=== PATIENT | female | born 1985 | race Caucasian/White ===

== ENCOUNTER 2017-04-17 19:34 | Emergency (ER) | payer BC ==
[~2017-04-17] VITALS: Ht 157.5 cm; Wt 49.9 kg
--- NOTE | 2017-04-17 19:36 | PHYS DOC ---
Adult General Chief Complaint Chief Complaint: fever, flulike symptoms HPI HPI Patient is a 31 year old female who presents with dizziness, nonproductive cough , fever over the last 23 days. She states yesterday she was seen and swab for influenza and was told it was negative. Her was diagnosed influenza about 4 days ago and is on Tamiflu. She denies any nausea vomiting diarrhea, abdominal pain or chest pain. She does have a nonproductive cough and states she feels extremely dizzy. She denies neck stiffness or confusion. She did take Motrin several hours ago. She states her past medical history depression and she is on Zoloft. Review of Systems Review of Systems Constitutional: Positive for fever Eyes: Denies change in visual acuity, redness, or eye pain [] HENT: Denies nasal congestion or sore throat [] Respiratory: Positive for nonproductive cough Cardiovascular: No additional information not addressed in HPI [] GI: Denies abdominal pain, nausea, vomiting, bloody stools or diarrhea [] : Denies dysuria or hematuria [] Musculoskeletal: Denies back pain or joint pain [] Integument: Denies rash or skin lesions [] Neurologic: Denies headache, focal weakness or sensory changes [] Endocrine: Denies polyuria or polydipsia [] All other systems were reviewed and found to be within normal limits, except as documented in this note. Physical Exam Physical Exam Constitutional: Well developed, well nourished, no acute distress, non-toxic appearance. [] HENT: Normocephalic, atraumatic, bilateral external ears normal, oropharynx moist, no oral exudates, nose normal. [] Eyes: PERRLA, EOMI, conjunctiva normal, no discharge. [] Neck: Normal range of motion, no tenderness, supple, no stridor. [] Cardiovascular:Heart rate regular rhythm, tachycardic, no murmur [] Lungs & Thorax: Bilateral breath sounds clear to auscultation [] Abdomen: Bowel sounds normal, soft, no tenderness, no masses, no pulsatile masses. [] Skin: Warm, dry, no erythema, no rash. [] Back: No tenderness, no CVA tenderness. [] Extremities: No tenderness, no cyanosis, no clubbing, ROM intact, no edema. [] Neurologic: Alert and oriented X 3, normal motor function, normal sensory function, no focal deficits noted. [] Psychologic: Affect normal, judgement normal, mood normal. [] EKG EKG [] Radiology/Procedures Radiology/Procedures [] Impressions: Influenza Right Otitis media Course & Med Decision Making Course & Med Decision Making Pertinent Labs and Imaging studies reviewed. (See chart for details) Influenza is positive. She received 2 L of fluid. She also received a gram of Tylenol. She does have some fluid and pain in her right ear we'll discharge with Z-Rupert since she is allergic to penicillin. In addition to 5 days of Tamiflu. Return precautions given. She is agreeable Plan B discharged in stable condition at this time. Dragon Disclaimer Dragon Disclaimer This electronic medical record was generated, in whole or in part, using a voice recognition dictation system. Departure Departure: Impression: Primary Impression: Otitis media Additional Impression: Influenza Disposition: ADMITTED INPATIENT Condition: STABLE Referrals: MELE MENA (PCP) Patient Instructions: Haemophilus influenzae type b Conjugate Vaccine injection Additional Instructions: You have influenza and will need to take Tamiflu for the next 5 days. You can also take Tylenol 650 mg every 4 hours not to exceed 3000 mg in 24 hours for fever and body aches. You can also try Advil 400 mg every 8 hours in addition to Tylenol if your fever is not controlled. You can also start taking a Z-Rupert for your ear discomfort. It is an antibiotic. You will need follow-up to primary care physician within a week. If your symptoms such as lightheadedness, dizziness gets worse or do does not improve and you will need to see your physician within the next few days. If you develop high fevers, shortness of breath, or other concerns return back to the ER. Scripts Azithromycin (AZITHROMYCIN TABLET) 250 Mg Tablet 1 PKG PO UD, #6 TAB Prov: JOE BROWNE MD 04/17/17 Oseltamivir Phosphate (TAMIFLU) 75 Mg Capsule 1 CAP PO BID, #10 CAP Prov: JOE BROWNE MD 04/17/17 Problem Qualifiers Primary Impression: Otitis media Otitis media type: unspecified Laterality: right Qualified Codes: H66.91 - Otitis media, unspecified, right ear JOE BROWNE MD Apr 17, 2017 19:36
[2017-04-17] MEDS ORDERED: ACETAMINOPHEN 500 MG TABLET PO ONE (20:15)
[2017-04-17] MEDS ORDERED: ACETAMINOPHEN 325 MG TABLET PO ONE (20:15)
[2017-04-17] MEDS ORDERED: IV NORMAL SALINE 1,000ML 1,000 ML IV SCH (20:15)
[2017-04-17 20:32] LABS: BASO % 0 % (0-3); EOS % 0 % (0-3); HEMATOCRIT 40.3 % (36.0-47.0); HEMOGLOBIN 13.9 g/dL (12.0-15.5); LYMPH # 0.5 x10^3/uL (1.0-4.8); LYMPH % 8 % (24-48); MEAN CORPUSCULAR HEMOGLOBIN 32 pg (25-35); MEAN CORPUSCULAR HGB CONC 34 g/dL (31-37); MEAN CORPUSCULAR VOLUME 92 fL (79-100); MONO # 0.5 x10^3/uL (0.0-1.1); MONO % 8 % (0-9); NEUT % 84 % (31-73); PLATELET COUNT 176 x10^3/uL (140-400); RED BLOOD COUNT 4.37 x10^6/uL (3.50-5.40); RED CELL DISTRIBUTION WIDTH 13.1 % (11.5-14.5)
[2017-04-17 20:37] LABS: INFLUENZA A PATIENT POSITIVE (NEGATIVE); INFLUENZA B PATIENT NEGATIVE (NEGATIVE)
[2017-04-17 20:40] LABS: BACTERIA,URINE 0 /HPF (0-FEW); BILIRUBIN,URINE NEG (NEG); CLARITY,URINE CLEAR; COLOR,URINE STRAW; GLUCOSE,URINE NEG (NEG); NITRITE,URINE NEG (NEG); SQUAMOUS EPITHELIAL CELL,UR OCC /LPF; UROBILINOGEN,URINE 0.2 mg/dL (0.2 mg/dL)
[2017-04-17 20:44] LABS: ALBUMIN 4.1 g/dL (3.4-5.0); CALCIUM 8.9 mg/dL (8.5-10.1); CREATININE 0.7 mg/dL (0.6-1.0); DIRECT BILIRUBIN 0.1 mg/dL (0.0-0.2); GFR 96.4; POTASSIUM 3.5 mmol/L (3.5-5.1); TOTAL BILIRUBIN 0.2 mg/dL (0.2-1.0)
[2017-04-17] MEDS ORDERED: OSELTAMIVIR 75 MG CAPSULE PO ONE (20:45)
[2017-04-17] MEDS ORDERED: OSEL75CA PO (21:06)
[2017-04-17] MEDS ORDERED: AZIT250T6 PO (21:06)
[2017-04-17] MEDS ORDERED: IV NORMAL SALINE 1,000ML 1,000 ML IV ONE (21:15)
[2017-04-17 21:45] VITALS: BP 101/68
== END 2017-04-17 21:51 | disposition other institution (70) ==
LOC: ER 19:34
DX: J09.X2 Influenza due to identified novel influenza A virus with other respiratory manifestations (principal); H66.91 Otitis media, unspecified, right ear; Z88.0 Allergy status to penicillin
CPT/HCPCS: 36415; 80048; 80076; 81001; 81025; 85025; 87804; 96360; 96361; 99285-25; J7030

== ENCOUNTER → 2020-02-29 | Outpatient (CLI) | payer BC ==
[~2020-02-29] MED LIST: AZIT250T6 PO; IOHEXOL 300 MG/ML 75 ML VIAL. IV ONE; OSEL75CA PO
--- NOTE | 2020-02-29 16:30 | RAD ---
Exam: CT abdomen/pelvis with intravenous contrast Indication: Unicornuate uterus, presurgery Comparison: CT abdomen and pelvis 03/08/2012 Technique: Helical CT imaging performed of the abdomen and pelvis after the intravenous administratio n of 75 mL intravenous contrast. Sagittal and coronal reformats were obtained. One or more of the following individualized dose reduction techniques were utilized for this examinat ion: 1. Automated exposure control 2. Adjustment of the mA and/or kV according to patient size 3. Use of iterative reconstruction technique. Findings: Lower chest: Lung bases are clear. The heart is normal in size. Liver: Normal. Gallbladder/Biliary Tree: Normal. Pancreas: Normal. Spleen: Normal. Adrenal Glands: Normal. Kidneys/Ureters/Bladder: Both kidneys are normal in size and morphology, and enhance symmetrically. N o hydronephrosis. Ureters are not well visualized. Bladder is normal. Reproductive Organs: Uterus is anteverted and deviated to the right. Uterine morphology would be bett er characterized by MRI. There are prominent parametrial vessels, greater on the left. The left ovary is high in position in the left lower quadrant, anterior to the iliacus muscle and lateral to the ps oas muscle, at the level of the sacral promontory. There are prominent left ovarian vessels. The righ t ovary is in the adnexa, abutting the uterine fundus. Stomach, small bowel, and colon: The stomach, small bowel, and colon are normal. The appendix is not well visualized. Vasculature: Abdominal aorta and inferior vena cava are normal. Lymph Nodes: No lymphadenopathy Peritoneum and retroperitoneum: Trace free fluid in the pelvis on the right. Bones: No acute osseous abnormality. IMPRESSION: 1. The uterus is anteverted and tilted to the right. Uterine morphology would be better characterize d by MRI. There are prominent parametrial vessels. 2. The left ovary is high in position in the left lower quadrant, anterior to the iliacus muscle and lateral to the psoas muscle, at the level of the sacral promontory. There are prominent left ovarian vessels. 3. The right ovary is in the right adnexa abutting the uterine fundus. 4. Normal appearance and position of both kidneys. Ureters are not well visualized. Electronically signed by: Rhianna Velasquez MD (02/29/2020 4:27 PM) [id number]
== END ==
LOC: CT 07:43
PROVIDERS: ATTEND Obstetrics & Gynecology
DX: Z01.818 Encounter for other preprocedural examination (principal); Q51.4 Unicornate uterus
CPT/HCPCS: 74177; Q9967

== ENCOUNTER 2020-03-10 17:49 | Emergency (ER) | payer BC ==
[~2020-03-10] VITALS: Ht 157.5 cm; Wt 55.0 kg
[~2020-03-10 17:49] MED LIST changes: -IOHEXOL 300 MG/ML 75 ML VIAL. IV ONE
--- NOTE | 2020-03-10 18:03 | PHYS DOC ---
Past History Past Medical History: Anemia, Anxiety Past Surgical History: Hysterectomy, Tubal ligation, Other Past Surgical History Cardiac ablation for proximal supraventricular tachycardia 2011 Alcohol Use: None Drug Use: None General Adult EDM: Chief Complaint: POST-OP PROBLEM HPI: HPI: ".. I had surgery at [facility] on 03/01/20 for a abnormal uterus.... Essentially is only half of a uterus... And I had a lot of excessive bleeding with men struation..... I was able to conceive 2 children,... And because of the continue problems with excessive bleeding and anemia with my periods I decided to have a hysterectomy.... I still have an ovary.... ... I called and they said go to Emergency Room... because I ve been having fever and I am still hurting ... I am better but still hurting .. the on-call said to go to the ED and just get checked out.".." I just feel like I should be getting better faster..." Patient is a 34 year old female who presents with complaints of post op fever after hysterctomy on 03/01 at [facility]. Patient had microsurgery with [facility]. Patient has had some diarrhea since her surgery. Patient has had a nonproductive cough. Patient still has pain with deep breaths and cough in her abdomen. Movement still painful but better then at time of discharge home.. There has been gradual improvement of pain since her surgery. Patient denies any recent travel. No specific ill contacts. Patient's Covid test was negative presurgery. Did get a flu vaccination this year. Patient has had previous cardiac ablation at [facility] in 2011. for supraventricular episodes of tachycardia. Patient denies any problems of urination. Suture lines appear to be stable and not inflamed. Minimal bilateral psoas sign. Does have rebound pain to mid abdomen. Does have findings of ecchymosis both flanks which have been present since her surgery. Patient has been maintaining a diet since surgery discharge. Patient not currently on any antibiotics. Patient last had Tylenol at noon and had ibuprofen just before arrival to the emergency department fevers have been over 100 at home. Patient has been more tachycardic today, Pt. did have several episodes of watery diarrhea today... The patient's primary is Dr. Dumont. Review of Systems: Review of Systems: Constitutional: Complains of fever or chills Eyes: Denies change in visual acuity HENT: Denies nasal congestion or sore throat Respiratory: Complains of a nonproductive cough GI: Complaints of post surgical abdominal pain, nausea,. Denies vomiting, bloody stools /. Patient has had some diarrhea : Denies dysuria Musculoskeletal: Denies back pain or joint pain Integument: Denies rash Neurologic: Denies headache, focal weakness or sensory changes Endocrine: Denies polyuria or polydipsia Lymphatic: Denies swollen glands Psychiatric: Denies depression or anxiety Family History: Family History: Noncontributory to presentation Current Medications: Current Meds: See nursing for home medications Allergies: Allergies: Allergies Coded Allergies Type Severity Reaction Last Updated Verified Penicillins Allergy Intermediate 04/17/17 Yes Physical Exam: PE: Constitutional: , moderate acute distress, non-toxic appearance. [] HENT: Normocephalic, atraumatic, bilateral external ears normal, oropharynx dry, no oral exudates, nose swollen turbinates with clear rhinorrhea Eyes: PERRLA, EOMI, conjunctiva pale, no discharge. [] Neck: Normal range of motion, no tenderness, supple, no stridor. [] Cardiovascular: Tachycardia heart rate regular rhythm, no murmur [] Lungs & Thorax: Bilateral breath sounds equal apex with bilateral basilar crackles and a few scattered wheezes on auscultation [] Abdomen: Bowel sounds hyperactive , soft, generalized tenderness, no masses, no pulsatile masses. Suture lines appear stable and no inflammation. Some bilateral abd. ecchymosis present since surgery that appears to be resolving. No rebound or localization of abdomen pain. No flank pain on percussion. Skin: Warm, dry, no erythema, no rash. Pale Back: No tenderness, no CVA tenderness. Scoliosis Extremities: No tenderness, no cyanosis, no clubbing, ROM intact, no edema. No significant psoas sign bilaterally. No cording appreciated. Neurologic: Alert and oriented X 3, moves all extremities on request, has distal sensory, no focal deficits noted. [] Psychologic: Affect anxious, judgement normal, mood normal. [] EKG: EKG: My interpretation EKG shows a normal sinus rhythm at 78 bpm no acute morphology [] Radiology/Procedures: Radiology/Procedures: [][address] [address] IMAGING REPORT Signed PATIENT: TERESA MAX RACCOUNT: [id number] : 1985 LOCATION: ER AGE: 34 SEX: F EXAM STATUS: REG ER ORD. PHYSICIAN: ANAHY KOWALSKI MD REASON: cough, abd. pain, post surg. 03/01 Hyst. PROCEDURE: ACUTE ABDOMEN SERIES ACUTE ABDOMEN SERIES Indication: Cough, abdominal pain Date of service:03/10/2020 .Comparison: None available Procedure: PA chest and upright and supine abdomen views are obtained. Findings: Chest: Cardiac size and pulmonary vessels are normal. Pneumonia, pneumothorax or pleural effusion are not present. Abdomen: No evidence of free air is present. Gas pattern is normal . No abnormal calcification. There is S-shaped scoliosis of the thoracolumbar spine. Impression: Normal Chest . Normal abdomen without obstruction, ileus or free air . Electronically signed by: Araceli Laws MD (03/10/2020 7:35 PM) [facility] DICTATED AND SIGNED BY: ARACELI LAWS MD DATE: 03/10/20 193 CC: ANAHY KOWALSKI MD; MELE DUMONT ~MTH0 0 Heart Score: HEART Score for Chest Pain: HEART Score for Chest Pain Response (Comments) Value History Slighlty/Non-Suspicious 0 ECG Normal 0 Age < 45 0 Risk Factors No Risk Factors 0 Troponin < Normal Limit 0 Total 0 Risk Factors: Risk Factors: DM, Current or recent (<one month) smoker, HTN, HLP, family history of CAD, obesity. Risk Scores: Score 0 - 3: 2.5% MACE over next 6 weeks - Discharge Home Score 4 - 6: 20.3% MACE over next 6 weeks - Admit for Clinical Observation Score 7 - 10: 72.7% MACE over next 6 weeks - Early Invasive Strategies Course & Med Decision Making: Course & Med Decision Making Pertinent Labs and Imaging studies reviewed. (See chart for details) Since patient's overall symptoms improved with hydration and Toradol. Elected not to start antibiotics at this time. No specific source. Normal white count. Normal urine. Follow-up pending cultures. To call her doctor first thing in the morning to see if they wish earlier follow-up. Patient did receive instruction on incentive spirometry. Discharge patient without complaints and stable vitals. Patient return if any concerns. . Impression 1. Fever 2. Post Op hysterectomy on 1218 at [facility] 3. Anemia 7.9 Hgb 4. Viral Syndrome 5. Scoliosis 6. Hx of Diarrhea ( No stools while in ED) [] Dragon Disclaimer: Dragon Disclaimer: This electronic medical record was generated, in whole or in part, using a voice recognition dictation system. Departure Departure: Referrals: MELE DUMONT (PCP) Fernando Disclaimer This chart was dictated in whole or in part using Voice Recognition software in a busy, high-work load, and often noisy Emergency Department environment. It may contain unintended and wholly unrecognized errors or omissions. ANAHY KOWALSKI MD Mar 10, 2020 18:03
[2020-03-10] MEDS ORDERED: IV RINGERS SOLUTION,LACTATED 1,000 ML IV SCH (18:15)
[2020-03-10 18:38] LABS: BASO % 0 % (0-3); EOS # 0.5 x10^3/uL (0.0-0.7); EOS % 6 % (0-3); HEMATOCRIT 24.5 % (36.0-47.0); HEMOGLOBIN 7.9 g/dL (12.0-15.5); LYMPH % 12 % (24-48); MEAN CORPUSCULAR HEMOGLOBIN 29 pg (25-35); MEAN CORPUSCULAR HGB CONC 32 g/dL (31-37); MEAN CORPUSCULAR VOLUME 91 fL (79-100); MONO # 0.8 x10^3/uL (0.0-1.1); MONO % 10 % (0-9); NEUT % 72 % (31-73); PLATELET COUNT 491 x10^3/uL (140-400); RED CELL DISTRIBUTION WIDTH 15.5 % (11.5-14.5); WHITE BLOOD COUNT 8.4 x10^3/uL (4.0-11.0)
[2020-03-10] MEDS ORDERED: oxyCODONE/APAP 5/325 1 TAB TABLET PO ONE (18:45)
[2020-03-10 18:47] LABS: CREATININE 0.7 mg/dL (0.6-1.0); GFR 94.7; POTASSIUM 3.6 mmol/L (3.5-5.1)
[2020-03-10] MEDS ORDERED: metroNIDAZOLE 500 MG TABLET PO ONE (19:00)
[2020-03-10] MEDS ORDERED: levoFLOXacin 500 MG TABLET PO ONE (19:00)
[2020-03-10] MEDS ORDERED: ONDANSETRON PF 4 MG/2 ML VIAL. IVP ONE (19:00)
--- NOTE | 2020-03-10 19:37 | RAD ---
ACUTE ABDOMEN SERIES Indication: Cough, abdominal pain Date of service:03/10/2020 .Comparison: None available Procedure: PA chest and upright and supine abdomen views are obtained. Findings: Chest: Cardiac size and pulmonary vessels are normal. Pneumonia, pneumothorax or pleural effusion ar e not present. Abdomen: No evidence of free air is present. Gas pattern is normal . No abnormal calcification. There is S-shaped scoliosis of the thoracolumbar spine. Impression: Normal Chest . Normal abdomen without obstruction, ileus or free air . Electronically signed by: Araceli Laws MD (03/10/2020 7:35 PM) [facility]
[2020-03-10 19:50] LABS: BACTERIA,URINE 0 /HPF (0-FEW); BILIRUBIN,URINE NEG (NEG); CLARITY,URINE CLEAR; COLOR,URINE YELLOW; GLUCOSE,URINE NEG (NEG); NITRITE,URINE NEG (NEG); RBC,URINE RARE /HPF (0-2); SQUAMOUS EPITHELIAL CELL,UR MANY /LPF; UROBILINOGEN,URINE 0.2 mg/dL (0.2 mg/dL); WBC,URINE RARE /HPF (0-4)
[2020-03-10] MEDS ORDERED: KETOROLAC 30 MG/ML VIAL. IVP ONE (20:30)
[2020-03-10 20:56] VITALS: BP 114/76
--- NOTE | 2020-03-11 07:35 | EKG ---
[address] [address] Test Date: 2020-03-10 Test Time: 19:55:06 Pat Name: TERESA MAX Department: Room: Gender: F Human Resources Admin: HYUN : 1985 Requested By: ANAHY KOWALSKI Order Number: [id number] Reading MD: Measurements Intervals [place] Rate: 78 P: 57 CO: 122 QRS: 66 QRSD: 76 T: 52 QT: 346 QTc: 398 Interpretive Statements SINUS RHYTHM NORMAL ECG RI6.02 No previous ECG available for comparison
== END 2020-03-10 21:14 | disposition home or self-care (01) ==
LOC: ER 17:49
DX: R50.82 Postprocedural fever (principal); B34.9 Viral infection, unspecified; D64.9 Anemia, unspecified; M41.9 Scoliosis, unspecified; R10.84 Generalized abdominal pain; F41.9 Anxiety disorder, unspecified; Z90.710 Acquired absence of both cervix and uterus; Z20.828 Contact with and (suspected) exposure to other viral communicable diseases; Z86.2 Personal history of diseases of the blood and blood-forming organs and certain disorders involving the immune mechanism; Z98.51 Tubal ligation status; Z88.0 Allergy status to penicillin
CPT/HCPCS: 36415; 74022; 80048; 81001; 83605; 85025; 87040; 93005; 96361; 96374; 96375; 99285; C9803; G0238; J1885; J2405; J7120; U0003

== ENCOUNTER → 2021-05-16 | Outpatient (CLI) | payer BC ==
--- NOTE | 2021-05-16 10:35 | RAD ---
US ABDOMEN OR LOWER BACK LIMITED History:Reason: PERIUMBILICAL MASS, PAIN / Spl. Instructions: / History: Comparison: CT February 29, 2020 Technique: Sonographic examination of the periumbilical region Findings: No mass or fluid collection within the region the patient's palpable concern adjacent to the umbilicu s on the left. No evidence of hernia. Impression: 1. No ultrasound evidence of abnormality within the region of the patient's palpable concern. If per sistent clinical concern, CT with contrast can further assess. Electronically signed by: Ever Corbett DO (05/16/2021 10:32 AM) [id number]
== END ==
LOC: US 08:40
PROVIDERS: ATTEND Physician Assistant
DX: R19.05 Periumbilic swelling, mass or lump (principal)
CPT/HCPCS: 76705